=== PATIENT | male | born 1935 | race Caucasian/White ===

== ENCOUNTER 2016-05-30 07:35 | Day surgery (SDC) | payer OTHER, MEDICARE ==
[2016-05-30] MEDS ORDERED: NS 1,000 ML IV ONE (07:38)
[2016-05-30] MEDS ORDERED: FAMOTIDINE 20 MG TAB PO ONE (07:38)
[2016-05-30] MEDS ORDERED: DIAZEPAM 5 MG TAB PO ONE (07:38)
[2016-05-30] MEDS ORDERED: ASPIRIN EC 325 MG TAB PO ONE (07:38)
[2016-05-30] MEDS ORDERED: diphenhydrAMINE 25 MG CAP PO ONE (07:38)
--- NOTE | 2016-05-30 07:56 | CPEKG ---
Heart Rate: 97 RR Interval: 619 P-R Interval: 236 QRSD Interval: 106 QT Interval: 364 QTC Interval: 463 P Kiana: 55 QRS Kiana: -72 T Wave Kiana: 21 EKG Severity - ABNORMAL ECG - EKG Impression: SINUS RHYTHM EKG Impression: FIRST DEGREE AV BLOCK EKG Impression: BORDERLINE IVCD WITH LAD EKG Impression: PROBABLE INFERIOR INFARCT, AGE INDETERMINATE EKG Impression: ANTERIOR INFARCT, AGE INDETERMINATE Electronically Signed By: Gustavo Chapman 31-May-2016 17:20:29
[2016-05-30] MEDS ORDERED: ASPIRIN 81 MG CHEWABLE TAB ONE (07:59)
[2016-05-30 08:12] LABS: % IMMATURE GRANULYOCYTES 0.4 % (0.0-1.1); ABSOLUTE IMMATURE GRANULOCYTES 0.02 10^3/uL (0.00-0.10); ADD DIFF? NO; ADD MORPH? NO; ADD SCAN? NO; ATYPICAL LYMPHOCYTE FLAG 0 (0-99); FRAGMENT RBC FLAG 0 (0-99); HEMATOCRIT 38.9 % (40.0-51.0); LEFT SHIFT FLG 0 (0-99); LIPEMIA HEMOLYSIS FLAG 80 (0-99); MEAN CELL HEMOGLOBIN 31.9 pg (27.9-34.1); MEAN CELL HEMOGLOBIN CONCENTR. 33.4 g/dL (32.4-36.7); MEAN CELL VOLUME 95.3 fL (81.5-99.8); MEAN PLATELET VOLUME 10.4 fL (8.7-11.7); PLATELET CLUMPS FLAG 0 (0-99); PLATELET COUNT 178 10^3/uL (150-400); RED BLOOD CELL COUNT 4.08 10^6/uL (4.40-6.38); RED CELL DISTRIBUTION WIDTH 12.5 % (11.5-15.2)
[2016-05-30 08:21] LABS: INR 1.05 (0.83-1.16); PROTIME(PATIENT) 13.6 SEC (12.0-15.0)
[2016-05-30] MEDS ORDERED: LIDOCAINE 1% 30 ML SDV ONE (08:26)
[2016-05-30] MEDS ORDERED: MIDAZOLAM 2 MG/2 ML VIAL ONE (08:27)
[2016-05-30] MEDS ORDERED: fentaNYL 100 MCG/2 ML INJ ONE (08:27)
[2016-05-30] MEDS ORDERED: IOPAMIDOL (ISOVUE 370) 100 ML BTL IV ONE (08:28)
[2016-05-30 08:39] LABS: ANION GAP 12 mEq/L (8-16); CALCIUM 9.5 mg/dL (8.5-10.4); CARBON DIOXIDE 21 mEq/l (22-31); CHLORIDE 109 mEq/L (97-110); CHOLESTEROL 122 mg/dL (140-220); CHOLESTEROL/HDL RATIO 2.14 RATIO (1.00-4.97); CREATININE 1.7 mg/dL (0.7-1.3); GLOMERULAR FILTRATION RATE 39; GLUCOSE 100 mg/dL (70-100); HIGH DENSITY LIPOPROTEIN 57 mg/dL (40-65); LDL/HDL RATIO 0.81 RATIO (1.00-3.64); LOW DENSITY LIPOPROTEIN 46 mg/dL (80-100); MAGNESIUM 2.2 mg/dL (1.6-2.3); NON-HIGH DENSITY LIPOPROTEIN 65 mg/dL (90-129); POTASSIUM 4.6 mEq/L (3.5-5.2); SODIUM 142 mEq/L (134-144); TRIGLYCERIDE 95 mg/dL (40-150); VERY LOW DENSITY LIPOPROTEINS 19 mg/dL (8-25)
[2016-05-30] MEDS ORDERED: ATROPINE SULFATE 1 MG/10 ML SYR IVP PRN (11:24)
[2016-05-30] MEDS ORDERED: OXYCODONE/APAP 5/325 TAB PO PRN (11:24)
[2016-05-30] MEDS ORDERED: ONDANSETRON 4 MG/2 ML VIAL IVP PRN (11:24)
[2016-05-30] MEDS ORDERED: NITROGLYCERIN 0.4 MG BTL SL PRN (11:24)
[2016-05-30] MEDS ORDERED: HYDROCODONE/APAP 5/325 TAB PO PRN (11:24)
[2016-05-30] MEDS ORDERED: NS 1,000 ML IV SCH (11:30)
--- NOTE | 2016-05-30 13:16 | GPN ---
[f rep st] PROCEDURE NOTE DATE OF PROCEDURE: 05/30/2016 PROCEDURE PERFORMED: Diagnostic left heart catheterization. INDICATION FOR PROCEDURE: Chest pain, abnormal nuclear stress test with evidence of apical ischemia , ventricular ectopy that increased with exertion. PROCEDURE: After informed consent was obtained, the patient was brought to the [facility]. Preoperative lab work demonstrated creatinine of 1.7. Review of his records demonstrated creatinine, that over t he last 12 months, has ranged between 1.5 and 2.0. He was treated prior to his left heart catheteri zation with IV saline of 1 L. Saline was also prescribed throughout the course of the procedure. A fter informed consent was obtained, he was brought to the cardiac catheterization lab. The patient was prepped and draped in a sterile fashion. Using 1% lidocaine, the right groin was an esthetized. Using the modified Seldinger technique, right common femoral artery was cannulated with a 6-Yakut sheath without complication. A JL4 catheter was used to take images of the left coronar y anatomy in multiple projections. A JL4 catheter was exchanged over an exchange length guidewire f or a JR4 catheter. JR4 catheter was used to take images of the right coronary anatomy in multiple p rojections. Due to creatinine of 1.7 left ventriculogram was not performed. FINDINGS: 1. Left main: Normal size and caliber. It bifurcates into a left anterior descending and left cir cumflex coronary artery. There was no evidence of coronary disease within the left main. 2. Left anterior descending: The left anterior descending is a large vessel that wraps around the left ventricular apex. There is a large 1st and moderate size 2nd diagonal branch without evidence of coronary artery disease. 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 There was no evidence of asencio ry disease throughout the left anterior descending artery or its branch vessels. 3. The left circumflex artery was a nondominant vessel. There is no evidence of coronary disease w ithin the left circumflex. The first obtuse marginal branch is a moderate-sized vessel free of luis nary disease, as well. 4. The right coronary artery is a large dominant artery, with a PDA branch as well as the PLV. The re is no evidence of coronary artery disease within the right coronary artery. 5. Angiography of the right common femoral artery was also obtained, demonstrating appropriate plac ement of the 6-Yakut femoral sheath. There is no evidence of arterial dissection or trauma. The s bradley was pulled, holding manual pressure. CONCLUSION: Normal coronary arteries. PLAN: 1. Patient will be brought back to [facility] for recovery. 2. A second liter of saline will be given throughout his period of bed rest. Bedrest x4 hours. /[id number]/MODL
== END 2016-05-30 15:40 | disposition home or self-care (01) ==
LOC: FCATH 07:35
PROVIDERS: ATTEND Internal Medicine Cardiovascular Disease
PROC: 4A023N7 Measurement of Cardiac Sampling and Pressure, Left Heart, Percutaneous Approach (ICD-10-PCS; principal; 2016-05-30)
PROC: B2111ZZ Fluoroscopy of Multiple Coronary Arteries using Low Osmolar Contrast (ICD-10-PCS; principal; 2016-05-30)
PROC: B2151ZZ Fluoroscopy of Left Heart using Low Osmolar Contrast (ICD-10-PCS; principal; 2016-05-30)
DX: R07.9 Chest pain, unspecified (principal); R94.39 Abnormal result of other cardiovascular function study; I44.4 Left anterior fascicular block; I10 Essential (primary) hypertension; E78.5 Hyperlipidemia, unspecified; N40.0 Benign prostatic hyperplasia without lower urinary tract symptoms; I34.9 Nonrheumatic mitral valve disorder, unspecified; R97.20 Elevated prostate specific antigen [PSA]; M10.9 Gout, unspecified
CPT/HCPCS: J1644; J2250; J3010; Q9967

== ENCOUNTER → 2017-05-14 | Outpatient (CLI) | payer OTHER, MEDICARE | LOC: BMCIMAGING 13:54 | PROVIDERS: ATTEND Orthopaedic Surgery | DX: Z13.828 Encounter for screening for other musculoskeletal disorder (principal) ==